=== PATIENT | male | born 1960 | race Caucasian/White ===

== ENCOUNTER → 2018-02-18 | Outpatient (CLI) | payer OTHER, BC ==
--- NOTE | 2018-02-18 15:11 | RAD ---
Abdomen series with chest, 3 views, 02/18/2018: History: Bloating, abdominal pain The abdominal gas pattern is unremarkable without evidence of obstruction. No free air is seen in the abdomen. There is no evidence of organomegaly. A lower pelvic opacity on the left is probably a phlebolith. The heart size is normal. The lungs are clear. There is no evidence of pleural fluid. IMPRESSION: No acute abdominal abnormality is detected.
== END | disposition home or self-care (01) ==
LOC: PMG 14:51
PROVIDERS: ATTEND Physician Assistant
DX: R14.0 Abdominal distension (gaseous) (principal); R91.8 Other nonspecific abnormal finding of lung field
CPT/HCPCS: 74022

== ENCOUNTER → 2018-02-23 | Outpatient (CLI) | payer OTHER, BC ==
[2018-02-23 09:03] LABS: BASO # 0.1 x10^3/uL (0.0-0.2); BASO % 1 % (0-3); EOS # 0.1 x10^3/uL (0.0-0.7); EOS % 1 % (0-3); HEMOGLOBIN 11.9 g/dL (13.0-17.5); LYMPH # 1.1 x10^3/uL (1.0-4.8); LYMPH % 17 % (24-48); MEAN CORPUSCULAR HEMOGLOBIN 29 pg (25-35); MEAN CORPUSCULAR HGB CONC 32 g/dL (31-37); MEAN CORPUSCULAR VOLUME 89 fL (79-100); MONO # 0.7 x10^3/uL (0.0-1.1); MONO % 11 % (0-9); NEUT # 4.5 x10^3uL (1.8-7.7); NEUT % 70 % (31-73); PLATELET COUNT 310 x10^3/uL (140-400); RED BLOOD COUNT 4.15 x10^6/uL (4.30-5.70); RED CELL DISTRIBUTION WIDTH 14.4 % (11.5-14.5); WHITE BLOOD COUNT 6.4 x10^3/uL (4.0-11.0)
[2018-02-23 09:16] LABS: ALBUMIN/GLOBULIN RATIO 1.1 (1.0-1.7); CALCIUM 9.9 mg/dL (8.5-10.1); CREATININE 1.3 mg/dL (0.7-1.3); GFR 56.9; TOTAL BILIRUBIN 0.4 mg/dL (0.2-1.0); TOTAL PROTEIN 7.6 g/dL (6.4-8.2)
--- NOTE | 2018-02-23 09:19 | RAD ---
CT Abdomen and Pelvis without contrast History: 10 pound weight gain in one week, abdominal pain for one week, shortness of breath, nausea and bloating Technique: Noncontrast CT imaging was performed of the abdomen and pelvis. Multiplanar images are reviewed. Exposure: One or more of the following individualized dose reduction techniques were utilized for this examination: 1. Automated exposure control 2. Adjustment of the mA and/or kV according to patient size 3. Use of iterative reconstruction technique. Comparison: None Findings: There is small pericardial effusion, also some foci of calcification of the pericardium on the left. There is no significant pleural fluid. Accurate evaluation of abdominal visceral organs is limited without intravenous contrast. There is no obvious focal abnormality of the liver, spleen, pancreas. There is no adrenal nodularity. There is no hydronephrosis of either kidney, no renal calculus. There is some variable cortical thinning of the left renal cortex. There is small quantity of perihepatic fluid, also some other mild free fluid in the abdomen and to a greater degree in the pelvis. There is cholelithiasis. Accurate evaluation of bowel is limited without oral contrast. Bowel is not significantly dilated. There is no free air. Normal appendix is visualized. There is retained stool greatest ascending and transverse colon. There is appearance of mild circumferential urinary bladder wall thickening. There is nonspecific body wall edema. Impression: 1. There is small quantity of free fluid in the abdomen, to a somewhat greater degree in the pelvis. 2. There is small pericardial effusion, also some foci of associated calcification of the pericardium. 3. There is cholelithiasis. 4. There is appearance of mild circumferential urinary bladder wall thickening. If true finding, findings could be due to cystitis. Electronically signed by: Sherman Hancock MD (02/23/2018 9:16 AM) [id number]
[2018-02-23 10:10] LABS: SEDIMENTATION RATE 6 (0-15)
[2018-02-23 14:19] LABS: FREE T4 1.21 ng/dL (0.76-1.46); THYROID STIM HORMONE (TSH) 2.123 uIU/mL (0.358-3.740)
== END | disposition home or self-care (01) ==
LOC: PMG 08:09
PROVIDERS: ATTEND Physician Assistant Medical
DX: I31.3 Pericardial effusion (noninflammatory) (principal); K80.20 Calculus of gallbladder without cholecystitis without obstruction
CPT/HCPCS: 36415; 74176; 80053; 82150; 83690; 83880; 84439; 84443; 85025; 85651

== ENCOUNTER → 2019-03-02 | Outpatient (CLI) | payer OTHER, BC ==
--- NOTE | 2019-03-02 14:51 | RAD ---
Gastric Emptying Study: Clinical History: Gastroparesis. COMPARISON: None available 2 mCi of technetium 99m sulfur colloid was administered in a meal and spot scanning was performed on a gamma camera for 4 hours for a 4 hour gastric emptying protocol. Activity at 1 hour is 42%%, normal is 35 to 91%. Activity at 2 hours is 10.6%, normal is 2.7% to 60%. Activity at 3 hours is 1.7%, normal is 0.5% to 28%. At 4 hours activity is 1.7%, normal is 0 to 10%. Impression: Normal gastric emptying. Electronically signed by: Kennedy Barcenas MD (03/02/2019 2:48 PM) [id number]
== END | disposition home or self-care (01) ==
LOC: EDSEX 08:53 → NM 08:53
PROVIDERS: ATTEND Physician Assistant Medical
DX: K31.84 Gastroparesis (principal)
CPT/HCPCS: 78264; A9541